=== PATIENT | male | born 1960 | race Caucasian/White ===

== ENCOUNTER 2016-07-03 10:40 | Emergency (ER) | payer MEDICAID ==
[2016-07-03 12:11] LABS: BASOPHILS 0.3 % (0.0-2.0); EOSINOPHILS 1.2 % (0-7); HEMATOCRIT 44.9 % (42.0-54.0); HEMOGLOBIN 15.3 g/dL (13.5-17.5); IMMATURE GRANULOCYTES 0.2 % (0-5); LYMPHOCYTES 21.9 % (15-50); MCH 32.2 pg (26.0-34.0); MCHC 34.1 g/dL (31.0-37.0); MCV 94.5 fL (80.0-100.0); MONOCYTES 10.5 % (2-11); NEUTROPHILS 65.9 % (40-80); RBC 4.75 10x6/uL (4.20-6.10); RDW 14.6 % (11.5-14.5); WBC 6.1 10x3/uL (4.8-10.8)
[2016-07-03 12:12] LABS: PLATELET COUNT 112 10x3/uL (130-400)
[2016-07-03 12:16] LABS: ALBUMIN 3.8 g/dL (3.4-5.0); ALKALINE PHOSPHATASE 80 U/L (46-116); ALT (SGPT) 205 U/L (10-68); BILIRUBIN - TOTAL 0.57 mg/dL (0.2-1.3); CALC OSMOLALITY 270 mosm/kg (275-300); CALCIUM 8.7 mg/dL (8.5-10.1); CARBON DIOXIDE 23.7 mmol/L (21.0-32.0); CHLORIDE - SERUM 100 mmol/L (98-107); CREATININE - SERUM 0.6 mg/dL (0.6-1.3); GLUCOSE 77 mg/dL (74-106); PROTEIN - SERUM 8.1 g/dL (6.4-8.2); SODIUM 137 mmol/L (136-145); UREA NITROGEN 6 mg/dL (7-18); eGFR NON AFRICAN AMERICAN > 90 mL/min (90-120)
== END 2016-07-03 12:58 | disposition home or self-care (01) ==
LOC: D.ER 10:40
PROVIDERS: Physician Assistant
DX: M25.532 Pain in left wrist (principal); R51 Headache; M54.2 Cervicalgia; F10.21 Alcohol dependence, in remission; W01.0XXA Fall on same level from slipping, tripping and stumbling without subsequent striking against object, initial encounter; Y93.89 Activity, other specified; Y92.017 Garden or yard in single-family (private) house as the place of occurrence of the external cause; J44.9 Chronic obstructive pulmonary disease, unspecified; F03.90 Unspecified dementia, unspecified severity, without behavioral disturbance, psychotic disturbance, mood disturbance, and anxiety; I10 Essential (primary) hypertension; F17.200 Nicotine dependence, unspecified, uncomplicated

== ENCOUNTER 2019-09-11 01:44 | Emergency (ER) | payer MEDICAID ==
[~2019-09-11] VITALS: Ht 182.9 cm; Wt 56.8 kg
[~2019-09-11 01:44] MED LIST: FLOMAX0.4 MG PO; HYDROCODON-ACE1 EA10 PO; MECLIZINE HCL25 MG PO; MOBIC7.5 MG PO; NORVASC10 MG; NORVASC5 MG PO; PROAIR HFA8.5 G1 INH; TRAZODONE HCL150 MG PO; ZOLOFT25 MG PO
[2019-09-11 01:51] VITALS: Ht 182.9 cm; Wt 56.8 kg
[2019-09-11 02:23] LABS: BASOPHILS 0.5 % (0-2); EOSINOPHILS 5.7 % (0-7); HEMATOCRIT 39.7 % (42.0-54.0); HEMOGLOBIN 12.7 g/dL (13.5-17.5); IMMATURE GRANULOCYTES 0.2 % (0-5); LYMPHOCYTES 30.4 % (15-50); MCH 26.5 pg (26.0-34.0); MCV 82.7 fL (80.0-100.0); MEAN PLATELET VOLUME 8.1 fL (7.4-10.4); MONOCYTES 6.4 % (2-11); NEUTROPHILS 56.8 % (40-80); RDW 18.6 % (11.5-14.5); WBC 8.2 10x3/uL (4.8-10.8)
[2019-09-11 02:29] LABS: PLATELET COUNT 135 10x3/uL (130-400)
[2019-09-11 02:32] LABS: CALC OSMOLALITY 271 mosm/kg (275-300); CALCIUM 8.6 mg/dL (8.5-10.1); CARBON DIOXIDE 27.8 mmol/L (21.0-32.0); CHLORIDE - SERUM 101 mmol/L (98-107); CREATININE - SERUM 0.9 mg/dL (0.6-1.3); GLUCOSE 95 mg/dL (74-106); POTASSIUM - SERUM 3.7 mmol/L (3.5-5.1); SODIUM 137 mmol/L (136-145); UREA NITROGEN 8 mg/dL (7-18); eGFR NON AFRICAN AMERICAN > 90 mL/min (90-120)
[2019-09-11 02:36] LABS: APTT 28.6 SECONDS (22.8-39.4); INR 0.93 (0.85-1.17); PROTIME 12.4 SECONDS (11.6-15.0)
[2019-09-11 02:50] LABS: ALBUMIN 3.4 g/dL (3.4-5.0); ALKALINE PHOSPHATASE 99 U/L (30-120); ALT (SGPT) 33 U/L (10-68); BILIRUBIN - TOTAL 0.68 mg/dL (0.2-1.3); CKMB 1.6 U/L (0.0-3.6); CREATINE KINASE 69 UL (21-232); PRO BNP 28 pg/mL (0-125); PROTEIN - SERUM 7.4 g/dL (6.4-8.2)
[2019-09-11] MEDS ORDERED: VIBRAMYCIN 100100 MG PO (02:50)
[2019-09-11 02:51] LABS: TROPONIN-I < 0.017 ng/mL (0.000-0.060)
[2019-09-11 02:59] VITALS: BP 134/89
== END 2019-09-11 02:59 | disposition home or self-care (01) ==
LOC: D.ER 01:44
PROVIDERS: Family Medicine
DX: R06.02 Shortness of breath (principal); J44.1 Chronic obstructive pulmonary disease with (acute) exacerbation; R04.2 Hemoptysis; J18.1 Lobar pneumonia, unspecified organism; R07.9 Chest pain, unspecified; I10 Essential (primary) hypertension; J44.9 Chronic obstructive pulmonary disease, unspecified; Z72.0 Tobacco use